=== PATIENT | female | born 1975 | race Caucasian/White ===

== ENCOUNTER 2024-04-30 08:53 | Day surgery (SDC) | payer BC ==
[2024-04-30] MEDS ORDERED: EPINEPHrine 1 MG/ML VIAL ONE (10:28)
[2024-04-30] MEDS ORDERED: Bupivacaine PF 0.5% 30 ML VIAL ONE (10:29)
[2024-04-30] MEDS ORDERED: Dexamethasone 20 MG/5 ML VIAL ONE (10:41)
[2024-04-30] MEDS ORDERED: Rocuronium Bromide 10 MG/ML (10ML VIAL) ONE (10:41)
[2024-04-30] MEDS ORDERED: Ondansetron PF 4 MG/2 ML Vial ONE (10:41)
[2024-04-30] MEDS ORDERED: PROPOFOL 20 ML ONE (10:41)
[2024-04-30] MEDS ORDERED: Lidocaine 1% PF 5 ML VIAL ONE (10:41)
[2024-04-30] MEDS ORDERED: Fentanyl 250 MCG/5 ML VIAL ONE (10:42)
[2024-04-30] MEDS ORDERED: Glycopyrrolate 0.2 MG/ML 5 ML SYRINGE ONE ×2 (10:42→11:12)
[2024-04-30] MEDS ORDERED: Midazolam HCl 2 mg/2 ml Vial ONE (10:42)
[2024-04-30] MEDS ORDERED: Ketorolac Tromethamine 30 MG (1 mL) VIAL ONE (10:42)
[2024-04-30] MEDS ORDERED: CEFAZOLIN 2 GM VIAL ONE (10:44)
[2024-04-30] MEDS ORDERED: PHENYLEPHRINE-NS 100 MCG/ML 10 ML SYRINGE ONE (11:12)
[2024-04-30] MEDS ORDERED: HYDROcodone/Acetaminophen 5/325 mg Tablet ONE (13:19)
== END 2024-04-30 13:55 | disposition home or self-care (01) ==
LOC: CSHSDC 08:53
PROVIDERS: ATTEND Surgery
PROC: 0FT44ZZ Resection of Gallbladder, Percutaneous Endoscopic Approach (ICD-10-PCS; principal; 2024-04-30)
DX: K80.12 Calculus of gallbladder with acute and chronic cholecystitis without obstruction (principal); K82.8 Other specified diseases of gallbladder; I10 Essential (primary) hypertension; E78.5 Hyperlipidemia, unspecified; F41.9 Anxiety disorder, unspecified; F17.210 Nicotine dependence, cigarettes, uncomplicated; Z79.899 Other long term (current) drug therapy; Z88.5 Allergy status to narcotic agent; Z90.49 Acquired absence of other specified parts of digestive tract
CPT/HCPCS: 88304; C1889; J0171; J0665; J1100; J1885; J2250; J2405; J2704; J3010